=== PATIENT | female | born 1955 | race Hispanic/Latino ===

== ENCOUNTER 2016-07-01 08:48 | Outpatient (CLI) | payer BC ==
--- NOTE | 2016-07-01 11:17 | Mammography Report ---
BILATERAL DIGITAL SCREENING MAMMOGRAM WITH CAD: 07/01/16 08:48:00 CLINICAL: Routine screening.Breast cancer survivor status post bilateral partial mastectomy. COMPARISON:06/02/15 FINDINGS: The breasts are heterogeneously dense, which may obscure small masses. The left breast is smaller than the right. Bilateral benign scar and calcifications. No mass, suspicious architectural distortion or suspicious calcifications. IMPRESSION: No mammographic evidence of malignancy. BI-RADS CATEGORY: 2 -- Benign RECOMMENDATION: Routine mammographic screening in one year. COMMENT: Patient follow-up letters are generated via our [employer] application.
== END 2016-07-01 08:49 | disposition home or self-care (01) ==
LOC: SPVWC 08:48
PROVIDERS: ATTEND Internal Medicine
DX: Z12.31 Encounter for screening mammogram for malignant neoplasm of breast (principal); Z90.13 Acquired absence of bilateral breasts and nipples
CPT/HCPCS: 77067; G0202

== ENCOUNTER 2017-08-05 15:56 | Outpatient (CLI) | payer BC ==
--- NOTE | 2017-08-06 14:30 | Mammography Report ---
BILATERAL DIGITAL SCREENING MAMMOGRAM WITH CAD: 08/05/17 15:56:00 CLINICAL: Routine screening.Breast cancer survivor status post with bilateral partial mastectomy and radiation therapy. COMPARISON:07/01/16 FINDINGS: The breasts are heterogeneously dense, which may obscure small masses. The left breast is smaller than the right. Stable bilateral postsurgical scar with benign calcifications. Surgical clips at the right upper scar. No mass, suspicious architectural distortion or suspicious calcifications. IMPRESSION: No mammographic evidence of malignancy. BI-RADS CATEGORY: 2 -- Benign RECOMMENDATION: Routine mammographic screening in one year. COMMENT: Patient follow-up letters are generated via our [employer] application.
== END 2017-08-05 15:57 | disposition home or self-care (01) ==
LOC: SPVWC 15:56
PROVIDERS: ATTEND Family Medicine
DX: Z12.31 Encounter for screening mammogram for malignant neoplasm of breast (principal); Z90.13 Acquired absence of bilateral breasts and nipples
CPT/HCPCS: 77067

== ENCOUNTER 2018-07-31 08:24 | Outpatient (CLI) | payer OTHER ==
--- NOTE | 2018-07-31 15:44 | Mammography Report ---
BILATERAL DIGITAL SCREENING MAMMOGRAM WITH CAD: 07/31/18 08:24:00 CLINICAL: Routine screening.Breast cancer survivor status post bilateral partial mastectomy and radiation therapy. COMPARISON:08/05/17, 07/03/16 and 06/02/15 FINDINGS: The breasts are heterogeneously dense, which may obscure small masses in the left breast is smaller than the right. Stable bilateral postsurgical scar and benign calcifications. No mass, suspicious architectural distortion or suspicious calcifications. IMPRESSION: No mammographic evidence of malignancy. BI-RADS CATEGORY: 2 -- Benign RECOMMENDATION: Routine mammographic screening in one year. COMMENT: Patient follow-up letters are generated via our [employer] application.
== END 2018-07-31 08:25 | disposition home or self-care (01) ==
LOC: SPVWC 08:24
PROVIDERS: ATTEND Family Medicine
DX: Z12.31 Encounter for screening mammogram for malignant neoplasm of breast (principal)
CPT/HCPCS: 77067

== ENCOUNTER 2020-09-27 11:18 | Outpatient (CLI) | payer OTHER ==
--- NOTE | 2020-09-27 16:09 | Mammography Report ---
DIGITAL SCREENING MAMMOGRAM WITH CAD, 09/27/2020 CLINICAL INFORMATION / INDICATION: Routine screening mammography. SCREENING MAMMO TECHNIQUE: Digital bilateral 2D mammography was obtained in the craniocaudal and mediolateral obliqu e projections. This examination was interpreted with the benefit of Computer-Aided Detection analysis . COMPARISON: 09/21/2019, 08/05/2017 FINDINGS: Breast Density: The breasts are heterogeneously dense, which may obscure small masses. No dominant mass, suspicious calcifications, or architectural distortion in either breast. Postlumpectomy changes are noted bilaterally. IMPRESSION: No mammographic evidence of malignancy. Follow up recommendation: Routine yearly BI-RADS Category 2: Benign. A "normal" or negative report should not discourage follow up or biopsy of a clinically significant f inding. A written summary of these findings will be mailed to the patient. The patient will be entered into a mammography reporting system which will generate a reminder letter for the patient's next appointmen t at the appropriate interval. The [employer] recommends yearly mammograms starting at age 40 and continuing as l fahad as a woman is in good health. Breast MRI is recommended for women with an approximate 20-25% or greater lifetime risk of breast cancer, including women with a strong family history of breast or ova eleazar cancer or who have been treated for Hodgkin's disease. Signer Name: Julien Cintron MD Signed: 09/27/2020 4:04 PM Workstation Name: [id number]
== END 2020-09-27 11:19 | disposition home or self-care (01) ==
LOC: SPVWC 11:18
PROVIDERS: ATTEND Internal Medicine Hematology & Oncology
DX: Z12.31 Encounter for screening mammogram for malignant neoplasm of breast (principal); N64.89 Other specified disorders of breast
CPT/HCPCS: 77067

== ENCOUNTER 2021-03-07 11:19 | Outpatient (CLI) | payer OTHER ==
--- NOTE | 2021-03-07 12:05 | Ultrasound Report ---
EXAMINATION: Right Limited Breast Ultrasound, 03/07/2021 INDICATION: The patient reports focal pain in the right breast. She has a personal history of bilateral breast ca ncer treated with lumpectomy. COMPARISON: Screening mammogram, 09/27/2020 FINDINGS: Targeted ultrasound evaluation was performed of the area of interest. Sonographic evaluati on of the upper outer right breast in the patient's area of pain demonstrates no evidence of suspicio us solid mass or shadowing. There is no focal abnormality to account for the patient's area of clinic al concern. IMPRESSION: 1. Clinical correlation is recommended for the patient's right breast pain. Follow up recommendation: Clinical exam BI-RADS Category 1: Negative. A normal or "negative" report should not preclude biopsy or follow-up of a clinically suspicious find ing. Signer Name: Mya Linton MD Signed: 03/07/2021 12:00 PM Workstation Name: [email or web address]
== END 2021-03-07 11:20 | disposition home or self-care (01) ==
LOC: SPVWC 11:19
PROVIDERS: ATTEND Internal Medicine Hematology & Oncology
DX: D05.11 Intraductal carcinoma in situ of right breast (principal); D05.12 Intraductal carcinoma in situ of left breast

== ENCOUNTER 2021-11-13 10:43 | Outpatient (CLI) | payer MEDICARE ==
--- NOTE | 2021-11-14 12:39 | Mammography Report ---
DIGITAL SCREENING MAMMOGRAM WITH CAD, 11/13/2021 CLINICAL INFORMATION / INDICATION: Routine screening mammography. TECHNIQUE: Digital bilateral 2D mammography was obtained in the craniocaudal and mediolateral oblique projections. This examination was interpreted with the benefit of Computer-Aided Detection analysis. COMPARISON: 08/05/2017 through 09/27/2020. FINDINGS: Breast Density: The breasts are heterogeneously dense, which may obscure small masses. No dominant mass, suspicious calcifications, or architectural distortion in either breast. Postlumpectomy/radiation changes bilaterally are again identified. No new abnormality is seen. IMPRESSION: No mammographic evidence of malignancy. Follow up recommendation: Routine yearly screening mammogram. - The ACR recommends yearly screening MRI in patients with a personal history of breast cancer who lambert ve dense fibroglandular tissue as well in patients who were diagnosed with breast cancer under the ag e of 50. BI-RADS Category 2: BENIGN. A "normal" or negative report should not discourage follow up or biopsy of a clinically significant f inding. A written summary of these findings will be mailed to the patient. The patient will be entered into a mammography reporting system which will generate a reminder letter for the patient's next appointmen t at the appropriate interval. The [employer] recommends yearly mammograms starting at age 40 and continuing as l fahad as a woman is in good health. Breast MRI is recommended for women with an approximate 20-25% or greater lifetime risk of breast cancer, including women with a strong family history of breast or ova eleazar cancer or who have been treated for Hodgkin's disease. Signer Name: Murali Corral MD Signed: 11/14/2021 12:35 PM Workstation Name: [email or web address]
== END 2021-11-13 10:44 | disposition home or self-care (01) ==
LOC: SPVWC 10:43
PROVIDERS: ATTEND Internal Medicine Hematology & Oncology
DX: Z12.31 Encounter for screening mammogram for malignant neoplasm of breast (principal)
CPT/HCPCS: 77067